=== PATIENT | female | born 1970 | race Two or more races ===

== ENCOUNTER 2023-06-18 08:52 | Outpatient (CLI) | payer OTHER | END 2023-06-18 09:05 | disposition home or self-care (01) | LOC: PPH VACUNA 08:52 | PROVIDERS: ATTEND Emergency Medicine Pediatric Emergency Medicine | DX: Z23 Encounter for immunization (principal) ==

== ENCOUNTER 2023-07-29 12:06 | Outpatient (CLI) | payer OTHER | END 2023-07-29 12:11 | disposition home or self-care (01) | LOC: MAMO-SONO 12:06 | PROVIDERS: ATTEND Surgery | DX: N60.11 Diffuse cystic mastopathy of right breast (principal); N60.12 Diffuse cystic mastopathy of left breast; Z12.31 Encounter for screening mammogram for malignant neoplasm of breast ==

== ENCOUNTER 2023-08-19 07:30 | Outpatient (CLI) | payer OTHER ==
[2023-08-19 08:47] LABS: PH,URINE 6.5 (5.0-8.0); URINE APPEARANCE Clear; URINE BILIRRUBIN Negative (NEGATIVE); URINE BLOOD Negative; URINE COLOR Yellow; URINE GLUCOSE Negative (NEGATIVE); URINE LEUKOCYTE Trace; URINE NITRATE Negative; URINE PROTEIN Negative (NEGATIVE); URINE UROBILINOGEN 0.2 E.U./dl
[2023-08-19 08:52] LABS: URINE EPITHELIAL CELLS 5.2 uL (0.0-38.8); URINE RBC 3.3 uL (0.0-20.8); URINE WBC 15.7 uL (0.0-23.2)
[2023-08-19 09:01] LABS: HEMATOCRIT 39.3 % (36.0-45.00); MEAN CELL VOLUME 86.9 fL (80.00-100.00); MEAN CORPUSCULAR HEMOGLOBIN 28.8 pg (27.00-32.0); MEAN CORPUSCULAR HGB CONC 33.2 g/dl (32.0-36.0); PLATELET COUNT 262 K/uL (150-450); RED BLOOD COUNT 4.52 M/uL (4.00-6.00); RED CELL DISTRIBUTION WIDTH 13.4 % (11.5-14.5)
[2023-08-19 09:29] LABS: ALBUMIN 3.6 gm/dL (3.4-5.0); BILIRUBIN TOTAL 0.41 mg/dL (0.3-1.2); CALCIUM 8.9 mg/dL (8.5-10.1); CHOL HDL RATIO 3.5 (0-5.0); CREATININE SERUM 0.72 mg/dL (0.55-1.02); GFR 84.41; GLOBULINA 3.6 G/DL (2.4-3.5); POTASSIUM 4.29 mEq/L (3.5-5.1); TOTAL PROTEIN 7.2 gm/dL (6.4-8.2); TSH 1.48 uIU/mL (0.358-3.74)
== END 2023-08-19 07:31 | disposition home or self-care (01) ==
LOC: LAB 07:30
PROVIDERS: ATTEND Obstetrics & Gynecology
DX: N95.9 Unspecified menopausal and perimenopausal disorder (principal); B97.89 Other viral agents as the cause of diseases classified elsewhere; E78.00 Pure hypercholesterolemia, unspecified; E03.9 Hypothyroidism, unspecified; E11.9 Type 2 diabetes mellitus without complications; E55.9 Vitamin D deficiency, unspecified; D50.9 Iron deficiency anemia, unspecified

== ENCOUNTER 2024-07-17 08:45 | Outpatient (CLI) | payer OTHER | END 2024-07-17 09:00 | disposition home or self-care (01) | LOC: PPH VACUNA 08:45 | PROVIDERS: ATTEND Emergency Medicine Pediatric Emergency Medicine | DX: Z23 Encounter for immunization (principal) ==

== ENCOUNTER 2024-08-01 08:35 | Outpatient (CLI) | payer OTHER | END 2024-08-01 08:41 | disposition home or self-care (01) | LOC: MAMO-SONO 08:35 | PROVIDERS: ATTEND Surgery | DX: N60.11 Diffuse cystic mastopathy of right breast (principal); N60.12 Diffuse cystic mastopathy of left breast ==

== ENCOUNTER 2024-10-18 07:28 | Outpatient (CLI) | payer OTHER | END 2024-10-18 07:34 | disposition home or self-care (01) | LOC: SONOGRAMA 07:28 | PROVIDERS: ATTEND Obstetrics & Gynecology | DX: N94.89 Other specified conditions associated with female genital organs and menstrual cycle (principal) ==

== ENCOUNTER 2024-11-27 11:05 | Emergency (ER) | payer OTHER ==
[~2024-11-27] VITALS: Ht 157.5 cm; Wt 68.9 kg
[2024-11-27] MEDS ORDERED: 0.9 % SODIUM CHLORIDE 500 ML IV ONE (14:00)
[2024-11-27] MEDS ORDERED: FAMOTIDINE/PF 20 MG/2 ML VIAL ONE (14:00)
[2024-11-27] MEDS ORDERED: FAMOtidine 10 MG/ML (4ML VIAL) IV ONE (14:00)
[2024-11-27 15:01] LABS: HEMATOCRIT 40.6 % (36.0-45.00); HEMOGLOBIN 13.7 g/dL (12.0-15.00); MEAN CELL VOLUME 86.9 fL (80.00-100.00); MEAN CORPUSCULAR HEMOGLOBIN 29.4 pg (27.00-32.0); MEAN CORPUSCULAR HGB CONC 33.8 g/dl (32.0-36.0); PLATELET COUNT 228 K/uL (150-450); RED BLOOD COUNT 4.67 M/uL (4.00-6.00); RED CELL DISTRIBUTION WIDTH 13.9 % (11.5-14.5)
[2024-11-27 15:22] LABS: ALBUMIN 3.8 gm/dL (3.4-5.0); BILIRUBIN TOTAL 0.37 mg/dL (0.3-1.2); CREATININE SERUM 0.6 mg/dL (0.55-1.02); GFR 103.79; POTASSIUM 4.18 mEq/L (3.5-5.1); TOTAL PROTEIN 7.8 gm/dL (6.4-8.2)
== END 2024-11-27 17:11 | disposition home or self-care (01) ==
LOC: ER 11:08
PROVIDERS: Preventive Medicine Public Health & General Preventive Medicine
DX: K29.70 Gastritis, unspecified, without bleeding (principal)

== ENCOUNTER 2025-01-23 07:31 | Outpatient (CLI) | payer OTHER ==
[2025-01-23 08:44] LABS: PH,URINE 5.5 (5.0-8.0); URINE APPEARANCE Clear; URINE BILIRRUBIN Negative (NEGATIVE); URINE BLOOD Negative; URINE COLOR Yellow; URINE GLUCOSE Negative (NEGATIVE); URINE KETONE Negative (NEGATIVE); URINE LEUKOCYTE Trace; URINE NITRATE Negative; URINE PROTEIN Negative (NEGATIVE); URINE UROBILINOGEN 0.2 E.U./dl
[2025-01-23 08:50] LABS: URINE BACTERIA 84.4 uL (0.0-1933); URINE EPITHELIAL CELLS 7.2 uL (0.0-38.8); URINE RBC 8.1 uL (0.0-20.8); URINE WBC 13.7 uL (0.0-23.2)
[2025-01-23 08:57] LABS: URINE CAST 0.14 uL (0.0-1.40)
[2025-01-23 09:08] LABS: HEMOGLOBIN 12.7 g/dL (12.0-15.00); MEAN CELL VOLUME 87.5 fL (80.00-100.00); MEAN CORPUSCULAR HEMOGLOBIN 29.3 pg (27.00-32.0); MEAN CORPUSCULAR HGB CONC 33.4 g/dl (32.0-36.0); PLATELET COUNT 218 K/uL (150-450); RED BLOOD COUNT 4.34 M/uL (4.00-6.00); RED CELL DISTRIBUTION WIDTH 13.9 % (11.5-14.5)
[2025-01-23 09:38] LABS: ALBUMIN 3.5 gm/dL (3.4-5.0); BILIRUBIN TOTAL 0.35 mg/dL (0.3-1.2); CALCIUM 8.9 mg/dL (8.5-10.1); CHOL HDL RATIO 2.9 (0-5.0); CREATININE SERUM 0.64 mg/dL (0.55-1.02); GFR 95.99; GLOBULINA 3.3 G/DL (2.4-3.5); POTASSIUM 4.09 mEq/L (3.5-5.1); TOTAL PROTEIN 6.8 gm/dL (6.4-8.2); TSH 1.49 uIU/mL (0.358-3.74)
== END 2025-01-23 07:38 | disposition home or self-care (01) ==
LOC: LAB 07:31 → CIR.AMB 07:31
DX: B97.89 Other viral agents as the cause of diseases classified elsewhere (principal); E78.00 Pure hypercholesterolemia, unspecified; E03.9 Hypothyroidism, unspecified; E11.9 Type 2 diabetes mellitus without complications; E55.9 Vitamin D deficiency, unspecified; D50.9 Iron deficiency anemia, unspecified

== ENCOUNTER 2025-06-05 07:17 | Outpatient (CLI) | payer OTHER | END 2025-06-05 07:19 | disposition home or self-care (01) | LOC: SONOGRAMA 07:17 | PROVIDERS: ATTEND Obstetrics & Gynecology | DX: N94.89 Other specified conditions associated with female genital organs and menstrual cycle (principal) ==